=== PATIENT | male | born 2000 | race African-American/Black ===

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

== ENCOUNTER 2023-04-11 09:14 | Inpatient (IN) ==
[2023-04-11 09:26] VITALS: BMI 22.1
[2023-04-11] MEDS ORDERED: ZOFRAN 4 MG/2 ML IVP ONE (09:34)
[2023-04-11] MEDS ORDERED: SODIUM CHLORIDE 1,000 ML IV STA ×3 (09:35→09:47)
[2023-04-11] MEDS ORDERED: ACETAMINOPHEN 1,000 MG/100 ML BAG IV ONE (09:37)
--- NOTE | 2023-04-11 09:40 | ED.PDOC ---
General ED Provider: Dr. FRANCES GILLIS DO Chief Complaint: Dizziness Stated Complaint: Weakness, discomfort, vomiting and loose stools Patient arrives afebrile with high heart rate 127 and low blood pressure 85/45 Patient reports feeling ill for only today He plays college basketball and exercises vigorously He denies falls or injuires No recent antibiotic rx's or surgeries No sick contacts He has had nausea, vomiting and loose stools Benign PSH, PMH: well controlled asthma Patient blood pressure improving with fluids Time Seen by Provider: 04/11/23 09:20 Information Source: Patient Primary Care Provider: TERI WANG APRN Nursing and Triage Documentation Reviewed and Agree: Yes Does patient meet sepsis criteria?: No System Inflammatory Response Syndrome: Not Applicable Sepsis Protocol: For patient's 13 years and over: Temp is 96.8 and below OR 101 and greater Pulse >90 BPM Resp >20/minute Acutely Altered Mental Status Are patient's symptoms suggestive of a new infection, such as: -Pneumonia -Skin, Soft Tissue -Endocarditis -UTI -Bone, Joint Infection -Implantable Device -Acute Abdominal Infection -Wound Infection -Meningitis -Blood Stream Catheter Infection -Unknown Review of Systems Review Of Systems Constitutional: Reports Chills, Fever, Malaise and Weakness; Denies Sweats or Loss of appetite Eyes: Denies Blindness, Blurred vision or Vision change Ears, Nose, Mouth, Throat: Denies Ear pain, Ear discharge or Nose pain Respiratory: Denies Cough, Orthopnea, Short of air, Stridor or Wheezing Cardiac: Denies Chest pain, Edema, Irregular heart rate or Lightheadedness GI: Reports Diarrhea; Denies Abdomen distended or Abdominal pain : Reports Frequency and Urgency; Denies Burning, Dysuria or Discharge Musculoskeletal: Denies Back pain, Gout, Joint pain or Joint swelling Skin: Denies Bruising, Change in color or Change in hair/nails Neurological: Denies Anxiety or Depressed Endocrine: Denies Excessive sweating or Flushing Hematologic/Lymphatic: Reports No symptoms All Other Systems: Reviewed and Negative PFSH Family History Grandfather/Grandmother Diabetes Hyperthyroidism Hypertension Social History Smoking and tobacco status: Never smoker Passive smoking exposure: No Second hand smoke exposure: No Alcohol intake: never Counseling given: No Substance use type: does not use Aishwarya/yazidism: NONE Number of children: 0 Highest education level completed: some college, no degree Current occupational status: unemployed Current occupation: College student Pets and animals: No Leisure activites: sports History of recent travel: No Sexually active: No Seatbelt use: always Drives intoxicated or rides with intoxicated maintenance truck driver: No Water heater temperature set < 120 degrees: Yes Working smoke detector in home: Yes Fire extinguisher in home: Yes Carbon monoxide detector in home: Yes Surgical History Status post myringotomy with insertion of tube Z96.22 - Myringotomy tube(s) status (ICD-10) Status post tonsillectomy Z90.89 - Acquired absence of other organs (ICD-10) Status post tonsillectomy and adenoidectomy Z90.89 - Acquired absence of other organs (ICD-10) Physical Exam Physical Exam Appearance: Reports Ill-appearing and Thin Ill-appearing: Severe Pain Distress: Not Applicable Eyes: Reports KELSI and EOMI ENT: Reports Ears normal and Nose normal Neck: Supple Respiratory: Reports Airway patent and Breath sounds clear; Denies Respirations nonlabored, Airway obstructed or Wheezes Cardiovascular: Reports Tachycardia GI/: Reports Soft, Nontender and Other (negative levine sign no m[place] point ttp) Musculoskeletal: Reports Normal strength and ROM intact Skin: Reports Warm and Dry Neurological: Reports Sensation intact and Motor intact Psychiatric: Reports Affect appropriate and Mood appropriate Critical Care Note Critical Care Note Total Critical Care Time (mins): 0 Course Course 04/11/23 09:43 04/11/23 09:43 Orders, Labs, Meds: Lab Review 04/11/23 04/11/23 04/11/23 09:40 09:43 09:55 WBC 30.97 H RBC 5.08 Hgb 15.1 Hct 43.9 MCV 86.4 MCH 29.7 MCHC 34.4 RDW Coeff of Celeste 12.8 Plt Count 230 Immature Gran % (Auto) 1.8 Neut % (Auto) 94.5 H Lymph % (Auto) 0.5 L [place] % (Auto) 2.7 Eos % (Auto) 0.1 Baso % (Auto) 0.4 Neut # (Auto) 29.3 H Lymph # (Auto) 0.2 L [place] # (Auto) 0.9 Eos # (Auto) 0.0 Baso # (Auto) 0.1 Immature Gran # (Auto) 0.6 Sodium 136.4 Potassium 3.84 Chloride 104.3 Carbon Dioxide 18.6 L Anion Gap 17.34 BUN 25.9 H Creatinine 2.36 H Estimated GFR (MDRD) 42.00 BUN/Creatinine Ratio 10.97 Glucose 90.0 Lactic Acid 4.83 H Calcium 8.78 Total Bilirubin 2.17 H AST 40.2 ALT 36.0 Alkaline Phosphatase 67.6 Total Creatine Kinase 203.9 H CK-MB (CK-2) 0.482 CK-MB (CK-2) % 0.2300 Total Protein 7.41 Albumin 4.35 Globulin 3.06 Albumin/Globulin Ratio 1.42 Lipase 74.7 Procalcitonin 135.55 H Urine Color Urine Clarity Urine pH Ur Specific [place] Urine Protein Urine Glucose (UA) Urine Ketones Urine Blood Urine Nitrite Urine Bilirubin Urine Urobilinogen Ur Leukocyte Esterase Urine Microscopic RBC Urine Microscopic WBC Ur Squamous Epith Cells Urine Bacteria Hyaline Casts Urine Mucus Infectious [place] Assay Negative Influ A Molecular Assay Negative by naat Influ B Molecular Assay Negative by naat RSV Antigen Negative by naat SARS CoV-2 RNA Rapid JEN Negative 04/11/23 04/11/23 10:15 12:12 WBC RBC Hgb Hct MCV MCH MCHC RDW Coeff of [place] Plt Count Immature Gran % (Auto) Neut % (Auto) Lymph % (Auto) [place] % (Auto) Eos % (Auto) Baso % (Auto) Neut # (Auto) Lymph # (Auto) [place] # (Auto) Eos # (Auto) Baso # (Auto) Immature Gran # (Auto) Sodium Potassium Chloride Carbon Dioxide Anion Gap BUN Creatinine Estimated GFR (MDRD) BUN/Creatinine Ratio Glucose Lactic Acid 5.15 H Calcium Total Bilirubin AST ALT Alkaline Phosphatase Total Creatine Kinase CK-MB (CK-2) CK-MB (CK-2) % Total Protein Albumin Globulin Albumin/Globulin Ratio Lipase Procalcitonin Urine Color Dark Urine Clarity Cloudy Urine pH 5.0 Ur Specific [place] >=1.030 Urine Protein 2+ H Urine Glucose (UA) Negative Urine Ketones Negative Urine Blood 3+ H Urine Nitrite Positive H Urine Bilirubin 1+ H Urine Urobilinogen 0.2 Ur Leukocyte Esterase 3+ H Urine Microscopic RBC 20-30 Urine Microscopic WBC 30-50 Ur Squamous Epith Cells 10-20 Urine Bacteria 2+ Hyaline Casts 2-5 Urine Mucus 1+ Infectious [place] Assay Influ A Molecular Assay Influ B Molecular Assay RSV Antigen SARS CoV-2 RNA Rapid JEN Orders Category Date Time Status ADMIT PATIENT INPATIENT .TO [facility] (MONITORED BED) ADMISSION 04/11/23 12:05 Active NPO REMINDER: IMAGING ONCE CARE 04/11/23 09:45 Completed NPO REMINDER: IMAGING ONCE CARE 04/11/23 10:46 Completed TELEMETRY MONITORING TELE CARE 04/11/23 12:05 Active ED IV/MEDIPORT/POWERPORT .ONCE EMERGENCY 04/11/23 09:33 Active BLOOD CULTURE Stat LAB 04/11/23 09:57 Received CBC W/ AUTO DIFF Stat LAB 04/11/23 09:43 Completed CHLAMYDIA/GC AMPLIFICATION Stat LAB 04/11/23 10:56 Ordered COMPREHENSIVE METABOLIC PANEL Stat LAB 04/11/23 09:43 Completed CPK [CREATINE KINASE] Stat LAB 04/11/23 09:43 Completed FLU A & B MOLECULAR [FLU A/B MOLECULAR] Stat LAB 04/11/23 09:40 Completed LACTIC ACID Stat LAB 04/11/23 09:43 Completed LACTIC ACID Stat LAB 04/11/23 12:12 Completed LIPASE Stat LAB 04/11/23 09:43 Completed MOLECULAR GROUP A STREP Stat LAB 04/11/23 09:46 Completed MONONUCLOSIS SCREEN Stat LAB 04/11/23 09:43 Completed RSV Stat LAB 04/11/23 09:40 Completed SARS COV-2 RNA RAPID JEN Stat LAB 04/11/23 09:55 Completed URINALYSIS C & S IF INDICATED Stat LAB 04/11/23 10:15 Completed URINE CULTURE Stat LAB 04/11/23 10:15 Received 0.9 % Sodium Chloride [Saline Flush] MEDS 04/11/23 09:33 Active 1 syr IVF PRN PRN Acetaminophen MEDS 04/11/23 09:37 Discontinued 1,000 mg in 100 ml IV ONCE Ceftriaxone/D5w 2 gm Premix [Rocephin 2 gm/50 ml D5w] MEDS 04/11/23 10:30 Discontinued 2 gm in 50 ml IV ONCE Ondansetron HCl/Pf [Zofran 4 mg/2 ml] MEDS 04/11/23 09:34 Discontinued 4 mg IVP ONCE ONE Sodium Chloride 0.9% [Sodium Chloride] 1,000 ml MEDS 04/11/23 09:35 Discontinued IV BOLUS Sodium Chloride 0.9% [Sodium Chloride] 1,000 ml MEDS 04/11/23 09:43 Discontinued IV BOLUS Sodium Chloride 0.9% [Sodium Chloride] 1,000 ml MEDS 04/11/23 09:[address] ABDOMEN/PELVIS W CONTRAST Stat RADS 04/11/23 09:[address] CHEST PE PROTOCOL Stat RADS 04/11/23 10:46 Completed Medications Generic Name Dose Route Start Last Admin Trade Name Freq PRN Reason Stop Dose Admin Acetaminophen 650 mg 04/11/23 13:02 Acetaminophen 325 Mg Tablet PO Q4H PRN Mild Pain CEFTRIAXONE/D5W 1 GM PREMIX 1 gm in 50 mls @ 75 mls/hr 04/12/23 09:00 Rocephin 1 Gm/50 Ml D5w IV 04/15/23 08:59 DAILY BAUDILIO Lactated Ringer's 1,000 mls @ 125 mls/hr 04/11/23 13:30 Lactated Ringers IV .Q8H BAUDILIO Ondansetron HCl 4 mg 04/11/23 13:02 Ondansetron Hcl/Pf 4 Mg/2 Ml Sdv IVP Q6H PRN Nausea / Vomiting Sodium Chloride 1 syr 04/11/23 09:33 0.9% Sodium Chloride 10 Ml Disp.Syrin IVF PRN PRN To flush IV Discontinued Medications Generic Name Dose Route Start Last Admin Trade Name Freq PRN Reason Stop Dose Admin Sodium Chloride 1,000 mls @ 1,000 mls/hr 04/11/23 09:35 04/11/23 10:10 Sodium Chloride IV 04/11/23 10:34 1,000 mls/hr BOLUS STA Administration Acetaminophen 1,000 mg in 100 mls @ 400 mls/hr 04/11/23 09:37 04/11/23 10:05 Acetaminophen IV 04/11/23 09:51 400 mls/hr ONCE ONE Administration Sodium Chloride 1,000 mls @ 700 mls/hr 04/11/23 09:43 04/11/23 13:52 Sodium Chloride IV 04/11/23 11:08 700 mls/hr BOLUS STA Administration Sodium Chloride 1,000 mls @ 2,000 mls/hr 04/11/23 09:47 04/11/23 12:47 Sodium Chloride IV 04/11/23 10:04 2,000 mls/hr BOLUS STA Administration CEFTRIAXONE/D5W 2 GM PREMIX 2 gm in 50 mls @ 75 mls/hr 04/11/23 10:30 04/11/23 11:03 Rocephin 2 Gm/50 Ml D5w IV 04/11/23 11:09 75 mls/hr ONCE ONE Administration Ondansetron HCl 4 mg 04/11/23 09:34 04/11/23 10:11 Ondansetron Hcl/Pf 4 Mg/2 Ml Sdv IVP 04/11/23 09:35 4 mg ONCE ONE Administration Vital Signs: Temp Pulse Resp BP Pulse Ox 04/11/23 09:15 100.1 F 127 H 16 85/45 L 97 MDM: Patient is a 22 yo M here for nausea, vomiting weakness Patient arrived meeting sepsis criteria with fever, tachycardia low blood pressure 3+ labs and 2 images reviewed by me Patient likely UTI/sepsis shock improved with fluids, vasopressors not required Consults to hospitalist team Patient and I discussed how it is less likely for someone young and male to have UTI/sepsis, but no high risk sexual behavior per patient We plan for fluids, abx and admission Patient and his mother and I discussed results and plan and agree with regimen WDX: UTI, sepsis,shock, fever nausea and vomiting acute condition high compleixty DDX: I considered pneumonia, cellulitis, meningitis, but these were less likely SDOH: Patient insured with PCP and family support Patient admitted stable. Discharge Plan Discharge Patient Disposition: ADMITTED INPATIENT Discharge Problem: SAVANNA (acute kidney injury), Fever, Septic shock, Acute UTI, Nausea & vomiting Did you review [place] [employer] for ALL controlled substances?: Not Applicable ED Provider: FRANCES GILLIS Condition: Good Physician Progress Note: []
[2023-04-11] MEDS ORDERED: ROCEPHIN 2 GM VIAL 2 GM in SODIUM CHLORIDE 100ML 100 ML IV ONE (09:43)
[2023-04-11 09:58] LABS: MONONUCLEOSIS SCREEN NEGATIVE (NEGATIVE)
[2023-04-11 10:03] LABS: ALBUMIN 4.35 g/dL (3.5-5.0); ALKALINE PHOSPHATASE 67.6 U/L (38-126); ASPARTATE AMINO TRANSFERASE 40.2 U/L (17-59); BILIRUBIN,TOTAL 2.17 mg/dL (0.2-1.3); BLOOD UREA NITROGEN 25.9 mg/dL (9-20); CALCIUM 8.78 mg/dL (8.4-10.2); CARBON DIOXIDE 18.6 mmol/L (22-30.0); CHLORIDE 104.3 mmol/L (98-107); CREATININE 2.36 mg/dL (0.60-1.10); LIPASE 74.7 U/L (23-300); POTASSIUM 3.84 mmol/L (3.5-5.1); SODIUM 136.4 mmol/L (134.5-145); TOTAL PROTEIN 7.41 g/dL (6.3-8.2)
[2023-04-11 10:06] LABS: MOLECULAR FLU A NEGATIVE BY NAAT (NEGATIVE); MOLECULAR FLU B NEGATIVE BY NAAT (NEGATIVE)
[2023-04-11 10:09] LABS: BASOPHILS # (AUTO) 0.1 K/uL (0-0.2); BASOPHILS % (AUTO) 0.4 % (0.0-3.0); EOSINOPHILS % (AUTO) 0.1 % (0.0-7.0); HEMATOCRIT 43.9 % (42.0-52.0); HEMOGLOBIN 15.1 g/dl (14.0-18.0); IMMATURE GRANULOCYTE # (AUTO) 0.6 (0.0-1.0); IMMATURE GRANULOCYTE % (AUTO) 1.8 % (0.0-5.0); LYMPHOCYTES # (AUTO) 0.2 K/uL (0.60-3.4); LYMPHOCYTES % (AUTO) 0.5 (10.0-50.0); MEAN CORPUSCULAR HEMOGLOBIN 29.7 pg (27.0-31.0); MEAN CORPUSCULAR HGB CONC 34.4 (31.8-35.4); MEAN CORPUSCULAR VOLUME 86.4 fl (80.0-94.0); MONOCYTES # (AUTO) 0.9 K/uL (0.4-2.0); MONOCYTES % (AUTO) 2.7 (0-10); NEUTROPHILS # (AUTO) 29.3 K/ul (2.0-6.9); NEUTROPHILS % (AUTO) 94.5 % (42.2-75.2); PLATELET COUNT 230 10^3/uL (140-440); RDW COEFFICIENT OF VARIATION 12.8 % (11.6-14.8); RED BLOOD COUNT 5.08 10^6/ul (4.70-6.10)
[2023-04-11 10:09] LABS: RSV MOLECULAR NEGATIVE BY NAAT (NEGATIVE)
[2023-04-11 10:11] LABS: WHITE BLOOD COUNT 30.97 K/ul (4.2-10.2)
[2023-04-11 10:20] LABS: SARS COV-2 RNA RAPID NAAT NEGATIVE (NEGATIVE)
[2023-04-11 10:23] LABS: BILIRUBIN,URINE 1+ (NEGATIVE); CLARITY,URINE Cloudy (CLEAR); COLOR,URINE Dark (YELLOW); GLUCOSE, URINE (UA) Negative (NEGATIVE); KETONES,URINE Negative (NEGATIVE); LEUKOCYTE ESTERASE ,URINE 3+ (NEGATIVE); NITRITE,URINE Positive (NEGATIVE); PROTEIN,URINE 2+ (NEGATIVE); URINE, BLOOD 3+ (NEGATIVE); UROBILINOGEN,URINE 0.2 (0.2)
[2023-04-11] MEDS ORDERED: ROCEPHIN 2 GM/50 ML D5W 2 GM/50 ML BAG IV ONE (10:30)
[2023-04-11 10:36] LABS: URINE RBC, MICROSCOPIC 20-30 (0-2)
[2023-04-11 10:37] LABS: BACTERIA,URINE 2+ (NOT PRESENT)
[2023-04-11 10:45] LABS: MUCUS,URINE 1+ (NOT PRESENT); URINE WBC, MICROSCOPIC 30-50 (0-2)
[2023-04-11 11:02] LABS: CREATINE KINASE 203.9 U/L (55-170)
[2023-04-11 11:23] LABS: CREATINE KINASE MB 0.482 ng/ml (0.0-2.38)
--- NOTE | 2023-04-11 11:29 | CT ---
EXAM: CTA CHEST FOR PE HISTORY: Sepsis and cough COMPARISON: Same day CT abdomen pelvis TECHNIQUE: CTA of the chest was performed from the lung apices to the upper abdomen after 100 ml of Visipaque IV contrast was administered using PE protocol. 3-D imaging was also provided. FINDINGS: There is no filling defect in the pulmonary arteries to the level of the subsegmental pulm onary arteries. The heart is normal without signs of ventricular strain. The thyroid is normal. Th e aorta is unremarkable. Heart is not enlarged without pericardial fluid. There is no lymphadenopat hy. There is no pneumothorax or effusion. There is no consolidation, nodule or mass. There is no abnorm al ground-glass. The airways are patent. Limited views of the soft tissues in the upper abdomen are unremarkable. The osseous structures are unremarkable. IMPRESSION: No acute cardiopulmonary process or consolidation. All CT scans are performed using dose optimization techniques as appropriate to the performed exam an d include at least one of the following: Automated exposure control, adjustment of the mA and/or kV according t o size, and the use of iterative reconstruction technique.
--- NOTE | 2023-04-11 11:44 | CT ---
CT ABDOMEN AND PELVIS WITH CONTRAST HISTORY: Nausea, vomiting, tachycardia, low blood pressure. TECHNIQUE: Contiguous axial tomographic sections were obtained from the dome of the diaphragm throug h the ischial tuberosities following the administration of iodinated intravenous contrast. Coronal a nd sagittal reformats were then performed. Automatic exposure control was utilized for dose reductio n technique. COMPARISON: None. FINDINGS: LOWER CHEST: Normal. Limited evaluation. LIVER: Normal size and attenuation without focal hepatic lesion. GALLBLADDER: No evidence of cholelithiasis, gallbladder wall thickening, or pericholecystic fluid. BILIARY: No intrahepatic or extrahepatic biliary ductal dilatation. PANCREAS: Normal contour and attenuation without focal lesion. Normal caliber main pancreatic duct. SPLEEN: Normal size and contour. ADRENALS: Normal size and shape without nodularity. KIDNEYS: The kidneys are unremarkable. PERITONEUM/MESENTERY: No free fluid, free air or mesenteric inflammatory change. No loculated fluid c ollection. VASCULATURE: Nonaneurysmal aorta. LYMPH NODES: No pathologically enlarged lymph nodes by CT size criteria. BOWEL: No bowel obstruction. The appendix is identified and has a normal diameter. Variable decompres josé miguel of the colon limits evaluation, no colitis or acute diverticulitis detected. URINARY BLADDER: Decompressed and poorly evaluated. REPRODUCTIVE: Unremarkable prostate and seminal vesicles. MUSCULOSKELETAL: The bones are normal. IMPRESSION: 1. No acute findings. 2. Negative for bowel obstruction, perforation, or appendicitis. All CT scans are performed using dose optimization techniques as appropriate to the performed exam an d include at least one of the following: Automated exposure control, adjustment of the mA and/or kV according t o size, and the use of iterative reconstruction technique.
[2023-04-11] MEDS ORDERED: ZOFRAN 4 MG/2 ML IVP PRN (13:02)
--- NOTE | 2023-04-11 14:23 | PCM ---
Date of Service Date Seen by Provider: 04/11/23 Time Seen by Provider: 12:15 Admit Day/Time Admission Date: 04/11/23 Admission Time: 12:05 Reason for Admission Chief Complaint: WEAKNESS Hospital Provider [facility] Provider: HERBERT BALTAZAR MD, [facility] Primary Care Physician Primary Care Physician: TERI WANG APRN History of Present Illness History of Present Illness: Patient is a 22 year old male with his mother with pmhx of dilatation of aortic valve who presents to ER for n/v, abd pain, and dizziness. Patient states he started feeling bad yesterday with a headache. Last night he experienced burning while urinating. Then today the abd pain and vomiting started. He denies any recent illnesses. Denies any risky sexual behavior, always uses protection. No rashes or testicular pain. No fever. In the ER he was found to be hypotensive, low grade fever, tachycardic, WBC 30.9, LA >4, Cr 2.36. He states he hasn't drank as much in last few days as well. Flu, rsv, and covid negative. CT chest, abd, pelvis negative for acute findings. UA significant for 3+ leukocytes and positive nitrites. He was given rocephin and fluids. Regarding dilatation of aortic valve, he was found to have a murmur years ago and he was worked up at [facility]. He had a borderline dilated aortic valve annulus. He is due to be seen by them again soon. Case Discussed With Case Discussed With: Patient's case was discussed with the ER Physicians, Dr. Baltazar. [facility] Surgical History Status post myringotomy with insertion of tube Z96.22 - Myringotomy tube(s) status (ICD-10) Status post tonsillectomy Z90.89 - Acquired absence of other organs (ICD-10) Status post tonsillectomy and adenoidectomy Z90.89 - Acquired absence of other organs (ICD-10) Family History Grandfather/Grandmother Diabetes Hyperthyroidism Hypertension Social History Smoking and tobacco status: Never smoker Passive smoking exposure: No Second hand smoke exposure: No Alcohol intake: never Counseling given: No Substance use type: does not use Aishwarya/caodaism: NONE Number of children: 0 Highest education level completed: some college, no degree Current occupational status: unemployed Current occupation: College student Pets and animals: No Leisure activites: sports History of recent travel: No Sexually active: No Seatbelt use: always Drives intoxicated or rides with intoxicated dedicated truck driver: No Water heater temperature set < 120 degrees: Yes Working smoke detector in home: Yes Fire extinguisher in home: Yes Carbon monoxide detector in home: Yes Allergies Allergies Allergy/AdvReac Type Severity Reaction Status Date / Time No Known Allergies Allergy Unverified 04/11/23 09:56 Current Medications Home Medications albuterol sulfate 90 mcg/actuation aerosol inhaler (ProAir HFA) 90 mcg inhalation 3-4XD PRN shortness of breath or wheezing #8.5 grams 10/24/22 [Rx Confirmed 04/11/23 Last Taken Unknown] Home Acetaminophen (Acetaminophen 325 Mg Tablet) 650 mg PO Q4H PRN PRN Reason: Mild Pain CEFTRIAXONE/D5W 1 GM PREMIX (Rocephin 1 Gm/50 Ml D5w) 1 gm in 50 mls @ 75 mls/hr IV DAILY BAUDILIO Stop: 04/15/23 08:59 Lactated Ringer's (Lactated Ringers) 1,000 mls @ 125 mls/hr IV .Q8H BAUDILIO Last Admin: 04/11/23 17:48 Dose: 125 mls/hr Ondansetron HCl (Ondansetron Hcl/Pf 4 Mg/2 Ml Sdv) 4 mg IVP Q6H PRN PRN Reason: Nausea / Vomiting Sodium Chloride (0.9% Sodium Chloride 10 Ml Disp.Syrin) 1 syr IVF PRN PRN PRN Reason: To flush IV Discontinued Medications Sodium Chloride (Sodium Chloride) 1,000 mls @ 1,000 mls/hr IV BOLUS STA Stop: 04/11/23 10:34 Last Admin: 04/11/23 10:10 Dose: 1,000 mls/hr Acetaminophen (Acetaminophen) 1,000 mg in 100 mls @ 400 mls/hr IV ONCE ONE Stop: 04/11/23 09:51 Last Admin: 04/11/23 10:05 Dose: 400 mls/hr Sodium Chloride (Sodium Chloride) 1,000 mls @ 700 mls/hr IV BOLUS STA Stop: 04/11/23 11:08 Last Admin: 04/11/23 13:52 Dose: 700 mls/hr Sodium Chloride (Sodium Chloride) 1,000 mls @ 2,000 mls/hr IV BOLUS STA Stop: 04/11/23 10:04 Last Admin: 04/11/23 12:47 Dose: 2,000 mls/hr CEFTRIAXONE/D5W 2 GM PREMIX (Rocephin 2 Gm/50 Ml D5w) 2 gm in 50 mls @ 75 mls/hr IV ONCE ONE Stop: 04/11/23 11:09 Last Admin: 04/11/23 11:03 Dose: 75 mls/hr Ondansetron HCl (Ondansetron Hcl/Pf 4 Mg/2 Ml Sdv) 4 mg IVP ONCE ONE Stop: 04/11/23 09:35 Last Admin: 04/11/23 10:11 Dose: 4 mg Review of Systems Constitutional: Reports Fatigue; Denies Fever, Chills or Weakness Head: Reports Normocephalic and Atraumatic Eyes: Denies Vision Changes Ears: Denies Pain or Drainage Nose: Denies Post Nasal Drip or Congestion Mouth: Denies Sores or Pain Throat: Denies Sore Throat or Difficulty Swallowing Cardiovascular: Denies Chest pain, Chest Pressure or Edema Respiratory: Denies Cough or Shortness of air Gastrointestinal: Reports Nausea, Vomiting, Diarrhea and Abdominal pain Genitourinary: Reports Dysuria; Denies Frequency, Incontinent Bladder or Incontinent Bowel Musculoskeletal: Denies Muscle Pain Dermatologic: Denies Rashes Neurological: Reports Headache and Dizziness; Denies Syncope, Loss of Conciousness, Numbness or Weakness Psychiatric: Denies Depression or Anxiety Physical examination Most Recent Vital Signs: Most Recent Vital Signs Temperature 100.1 F 04/11/23 09:15 Temperature Source Infrared 04/11/23 09:15 Pulse Rate 127 H 04/11/23 09:15 Respiratory Rate 16 04/11/23 09:15 Blood Pressure 85/45 L 04/11/23 09:15 O2 Sat by Pulse Oximetry 97 04/11/23 09:15 Height 6 ft 7 in 04/11/23 09:15 Weight 196 lb 6 oz 05/19/23 09:15 Appearance: Positive Well-appearing, Well-nourished, No Apparent Distress, Alert and Oriented x3 and Other (Healthy, tall male sitting in bed looking at his phone. Mother at bedside. ) Skin: Positive Lazy Y U, Warm and Good Color; Negative Rashes or Jaundice HEENT: Positive Normocephalic and Atraumatic Neck: Positive Supple and Midline Trachea Chest/Lungs: Positive Symmetrical With Equal Breath Sounds and Clear to Auscultation Bilaterally; Negative Rales, Rhonci or Wheezes Heart: Positive RRR GI/: Positive Soft, Nontender, Bowel Sounds Normal, No Distention and Other (No suprapubic tendernses ) Musculoskeletal: Positive Normal Gait and Station; Negative Tenderness Extremities: Positive Intact Peripheral Pulses; Negative Edema or Joint Tenderness Neurological: Positive Motor intact, Cranial Nerves Intact, Alert, Oriented and Muscle Strength 5/5 in Upper and Lower Extremities Bilaterally Psychiatric: Positive Oriented x4, Appropriate Mood and Appropriate Affect Labs This Visit Labs This Visit: Labs This Visit 04/11/23 04/11/23 04/11/23 09:40 09:43 09:55 WBC 30.97 H RBC 5.08 Hgb 15.1 Hct 43.9 MCV 86.4 MCH 29.7 MCHC 34.4 RDW Coeff of Celeste 12.8 Plt Count 230 Immature Gran % (Auto) 1.8 Neut % (Auto) 94.5 H Lymph % (Auto) 0.5 L [place] % (Auto) 2.7 Eos % (Auto) 0.1 Baso % (Auto) 0.4 Neut # (Auto) 29.3 H Lymph # (Auto) 0.2 L [place] # (Auto) 0.9 Eos # (Auto) 0.0 Baso # (Auto) 0.1 Immature Gran # (Auto) 0.6 Sodium 136.4 Potassium 3.84 Chloride 104.3 Carbon Dioxide 18.6 L Anion Gap 17.34 BUN 25.9 H Creatinine 2.36 H Estimated GFR (MDRD) 42.00 BUN/Creatinine Ratio 10.97 Glucose 90.0 Lactic Acid 4.83 H Calcium 8.78 Total Bilirubin 2.17 H AST 40.2 ALT 36.0 Alkaline Phosphatase 67.6 Total Creatine Kinase 203.9 H CK-MB (CK-2) 0.482 CK-MB (CK-2) % 0.2300 Total Protein 7.41 Albumin 4.35 Globulin 3.06 Albumin/Globulin Ratio 1.42 Lipase 74.7 Procalcitonin 135.55 H Urine Color Urine Clarity Urine pH Ur Specific [place] Urine Protein Urine Glucose (UA) Urine Ketones Urine Blood Urine Nitrite Urine Bilirubin Urine Urobilinogen Ur Leukocyte Esterase Urine Microscopic RBC Urine Microscopic WBC Ur Squamous Epith Cells Urine Bacteria Hyaline Casts Urine Mucus Infectious [place] Assay Negative Influ A Molecular Assay Negative by naat Influ B Molecular Assay Negative by naat RSV Antigen Negative by naat SARS CoV-2 RNA Rapid JEN Negative 04/11/23 04/11/23 10:15 12:12 WBC RBC Hgb Hct MCV MCH MCHC RDW Coeff of [place] Plt Count Immature Gran % (Auto) Neut % (Auto) Lymph % (Auto) [place] % (Auto) Eos % (Auto) Baso % (Auto) Neut # (Auto) Lymph # (Auto) [place] # (Auto) Eos # (Auto) Baso # (Auto) Immature Gran # (Auto) Sodium Potassium Chloride Carbon Dioxide Anion Gap BUN Creatinine Estimated GFR (MDRD) BUN/Creatinine Ratio Glucose Lactic Acid 5.15 H Calcium Total Bilirubin AST ALT Alkaline Phosphatase Total Creatine Kinase CK-MB (CK-2) CK-MB (CK-2) % Total Protein Albumin Globulin Albumin/Globulin Ratio Lipase Procalcitonin Urine Color Dark Urine Clarity Cloudy Urine pH 5.0 Ur Specific [place] >=1.030 Urine Protein 2+ H Urine Glucose (UA) Negative Urine Ketones Negative Urine Blood 3+ H Urine Nitrite Positive H Urine Bilirubin 1+ H Urine Urobilinogen 0.2 Ur Leukocyte Esterase 3+ H Urine Microscopic RBC 20-30 Urine Microscopic WBC 30-50 Ur Squamous Epith Cells 10-20 Urine Bacteria 2+ Hyaline Casts 2-5 Urine Mucus 1+ Infectious [place] Assay Influ A Molecular Assay Influ B Molecular Assay RSV Antigen SARS CoV-2 RNA Rapid JEN Microbiology This Visit 04/11/23 09:46 Throat Group A Strep Molecular Assay - Final Imaging Imagining: EXAM: CTA CHEST FOR PE HISTORY: Sepsis and cough COMPARISON: Same day CT abdomen pelvis TECHNIQUE: CTA of the chest was performed from the lung apices to the upper abdomen after 100 ml of Visipaque IV contrast was administered using PE protocol. 3-D imaging was also provided. FINDINGS: There is no filling defect in the pulmonary arteries to the level of the subsegmental pulmonary arteries. The heart is normal without signs of ventricular strain. The thyroid is normal. The aorta is unremarkable. Heart is not enlarged without pericardial fluid. There is no lymphadenopathy. There is no pneumothorax or effusion. There is no consolidation, nodule or mass. There is no abnormal ground-glass. The airways are patent. Limited views of the soft tissues in the upper abdomen are unremarkable. The osseous structures are unremarkable. IMPRESSION: No acute cardiopulmonary process or consolidation. CT ABDOMEN AND PELVIS WITH CONTRAST HISTORY: Nausea, vomiting, tachycardia, low blood pressure. TECHNIQUE: Contiguous axial tomographic sections were obtained from the dome of the diaphragm through the ischial tuberosities following the administration of iodinated intravenous contrast. Coronal and sagittal reformats were then performed. Automatic exposure control was utilized for dose reduction technique. COMPARISON: None. FINDINGS: LOWER CHEST: Normal. Limited evaluation. LIVER: Normal size and attenuation without focal hepatic lesion. GALLBLADDER: No evidence of cholelithiasis, gallbladder wall thickening, or pericholecystic fluid. BILIARY: No intrahepatic or extrahepatic biliary ductal dilatation. PANCREAS: Normal contour and attenuation without focal lesion. Normal caliber main pancreatic duct. SPLEEN: Normal size and contour. ADRENALS: Normal size and shape without nodularity. KIDNEYS: The kidneys are unremarkable. PERITONEUM/MESENTERY: No free fluid, free air or mesenteric inflammatory change. No loculated fluid collection. VASCULATURE: Nonaneurysmal aorta. LYMPH NODES: No pathologically enlarged lymph nodes by CT size criteria. BOWEL: No bowel obstruction. The appendix is identified and has a normal diameter. Variable decompression of the colon limits evaluation, no colitis or acute diverticulitis detected. URINARY BLADDER: Decompressed and poorly evaluated. REPRODUCTIVE: Unremarkable prostate and seminal vesicles. MUSCULOSKELETAL: The bones are normal. IMPRESSION: 1. No acute findings. 2. Negative for bowel obstruction, perforation, or appendicitis. Review Statement Review Statement: I have independently reviewed and interpreted the labs/EKGs/imaging that were ordered by the ER provider. I have reviewed all outside records that are available currently in our EMR including imaging/notes/labs from previous visits. Plan Plan: A&P: 1. Acute pyelonephritis - Urine culture pending. LR at 125 ml/hr once boluses finish. Rocephin ordered. Zofran IV for nausea and tylenol PO for pain/fever ordered. Gonorrhea/chlamydia pending. 2. Sepsis, severe in setting of acute pyelonephritis - Repeat lactic worsened to 5. WBC 30.9. Will continue to trend until improving. Continue fluids and abx. Urine cx and blood cx pending. Pt received 30 ml/kg of fluids. Check procal and CRP. 3. SAVANNA, stage I in setting of dehydration, hypotension, and sepsis - Continue fluids. Repeat BMP in AM. 4. Dehydration - Plan as above 5. Hypotension in setting of dehydration and sepsis - Improved after fluids. Continue to monitor, vitals q4hrs. DVT Prophylaxis: Ambulation Time Spent: Greater than 80 minutes spent with patient, 50% of the time spent with this patient was devoted to counseling and coordination of care. [facility] minutes spent discussing advance care planning. FULL CODE Admit to: Inpatient Discussed Plan of Care with Dr. Nato Baltazar. Medications Medication Orders: Medications Ordered Category Date Time Status 0.9 % Sodium Chloride [Saline Flush] MEDS 04/11/23 09:33 Active 1 syr IVF PRN PRN Acetaminophen [Tylenol] MEDS 04/11/23 13:02 Active 650 mg PO Q4H PRN Ceftriaxone/D5w 1 gm Premix [Rocephin 1 gm/50 ml D5w] MEDS 04/12/23 09:00 Active 1 gm in 50 ml IV DAILY Ondansetron HCl/Pf [Zofran 4 mg/2 ml] MEDS 04/11/23 13:02 Active 4 mg IVP Q6H PRN Ringers Lactated Solution [Lactated Ringers] 1,000 ml MEDS 04/11/23 13:30 Active IV 125 mls/hr
[2023-04-11] MEDS: LACTATED RINGERS 1,000 ML IV SCH (17:48)
[2023-04-11] MEDS: TYLENOL PO PRN (21:13)
[2023-04-12] MEDS: LACTATED RINGERS 1,000 ML IV SCH ×6 (01:36→21:34)
[2023-04-12] MEDS: TYLENOL PO PRN ×3 (04:04→20:50)
[2023-04-12 05:35] LABS: BASOPHILS # (AUTO) 0.1 K/uL (0-0.2); BASOPHILS % (AUTO) 0.3 % (0.0-3.0); EOSINOPHILS # (AUTO) 0.1 K/ul (0.0-0.7); EOSINOPHILS % (AUTO) 0.4 % (0.0-7.0); HEMATOCRIT 38.7 % (42.0-52.0); HEMOGLOBIN 13.3 g/dl (14.0-18.0); IMMATURE GRANULOCYTE # (AUTO) 0.9 (0.0-1.0); IMMATURE GRANULOCYTE % (AUTO) 3.3 % (0.0-5.0); LYMPHOCYTES # (AUTO) 0.3 K/uL (0.60-3.4); LYMPHOCYTES % (AUTO) 1.3 (10.0-50.0); MEAN CORPUSCULAR HEMOGLOBIN 29.3 pg (27.0-31.0); MEAN CORPUSCULAR HGB CONC 34.4 (31.8-35.4); MEAN CORPUSCULAR VOLUME 85.2 fl (80.0-94.0); MONOCYTES # (AUTO) 0.6 K/uL (0.4-2.0); MONOCYTES % (AUTO) 2.1 (0-10); NEUTROPHILS # (AUTO) 24.2 K/ul (2.0-6.9); NEUTROPHILS % (AUTO) 92.6 % (42.2-75.2); PLATELET COUNT 165 10^3/uL (140-440); RDW COEFFICIENT OF VARIATION 12.9 % (11.6-14.8); RED BLOOD COUNT 4.54 10^6/ul (4.70-6.10); WHITE BLOOD COUNT 26.14 K/ul (4.2-10.2)
[2023-04-12 05:51] LABS: ALANINE AMINOTRANSFERASE 88.9 U/L (0-50); ALKALINE PHOSPHATASE 78.9 U/L (38-126); ASPARTATE AMINO TRANSFERASE 87.3 U/L (17-59); BILIRUBIN,TOTAL 4.1 mg/dL (0.2-1.3); BLOOD UREA NITROGEN 28.8 mg/dL (9-20); CALCIUM 7.39 mg/dL (8.4-10.2); CARBON DIOXIDE 22.3 mmol/L (22-30.0); CHLORIDE 103.1 mmol/L (98-107); CREATININE 1.86 mg/dL (0.60-1.10); GLUCOSE 90.7 mg/dL (74-106); POTASSIUM 3.71 mmol/L (3.5-5.1); TOTAL PROTEIN 5.69 g/dL (6.3-8.2)
[2023-04-12] MEDS ORDERED: TYLENOL PO ONE (05:58)
[2023-04-12] MEDS ORDERED: LACTATED RINGERS 1,000 ML IV STA (05:58)
[2023-04-12 06:55] LABS: CREATINE KINASE MB 0.938 ng/ml (0.0-2.38)
[2023-04-12] MEDS: ROCEPHIN 1 GM/50 ML D5W 1 GM/50 ML BAG IV SCH (08:39)
--- NOTE | 2023-04-12 10:38 | PCM.PROG ---
Date/Time Seen Date Seen by Provider: 04/12/23 Time Seen by Provider: 08:30 Provider Provider: Shirley Campo PA-C , [facility] Chief Complaint Chief Complaint: WEAKNESS Subjective Subjective: Patient continues to be hypotensive and febrile on and off. He states he has a headache and dizziness when standing. Complains of sore throat, sore neck. He denies n/v abd pain, that is all resolved as of now. He has been urinating well, nursing reports it was tea colored this morning but improving. Eating and drinking well. Mother at bedside. Objective Appearance: Positive Well-appearing, Well-nourished, No Apparent Distress, Alert and Oriented x3 and Other (Posterior pharynx erythematous. ) Chest/Lungs: Positive Symmetrical With Equal Breath Sounds and Clear to Auscultation Bilaterally; Negative Rales, Rhonci or Wheezes Heart: Positive RRR and Pulses Normal GI/: Positive Soft, Nontender and Bowel Sounds Normal Neurological: Positive Cranial Nerves Intact, Alert, Oriented, Muscle Strength 5/5 in Upper and Lower Extremities Bilaterally and Other (Kernig and Brudzinski signs are negative. Pt able to flex neck putting chin to chest without difficulty. ) Vital Signs Vital Signs: Vital Signs: Last 24 Hours 04/11/23 14:00 04/11/23 14:52 04/11/23 14:52 Temperature 98.6 F Temperature Source Oral Pulse Rate 80 92 Pulse Rate [Apical] Respiratory Rate 20 20 20 Blood Pressure 107/58 L Blood Pressure Mean Blood Pressure Right Arm 115/66 Blood Pressure Location Blood Pressure Position Supine O2 Sat by Pulse Oximetry 98 99 Oxygen Delivery Method Room Air Room Air Height 6 ft 7 in Weight 196 lb 9.6 oz Telemetry Type Telemetry Monitoring Telemetry Heart Rate EKG WV Interval EKG QRS Interval Telemetry Strip Reading 04/11/23 15:36 04/11/23 19:00 04/11/23 19:52 Temperature Temperature Source Pulse Rate Pulse Rate [Apical] 106 H Respiratory Rate Blood Pressure Blood Pressure Mean Blood Pressure Right Arm Blood Pressure Location Blood Pressure Position O2 Sat by Pulse Oximetry Oxygen Delivery Method Room Air Height Weight Telemetry Type Remote Telemetry Remote Telemetry Telemetry Monitoring Started Continues Telemetry Heart Rate 95 107 H EKG WV Interval 0.22 H 0.14 EKG QRS Interval 0.11 H 0.09 Telemetry Strip Reading SR 1st Degree AVB ST 04/11/23 21:16 04/12/23 01:42 04/12/23 01:00 Temperature 100.8 F H 99.9 F Temperature Source Temporal Artery Scan Temporal Artery Scan Pulse Rate 104 H 95 Pulse Rate [Apical] Respiratory Rate 18 18 Blood Pressure 113/61 Blood Pressure Mean 78 Blood Pressure Right Arm Blood Pressure Location Right Arm Blood Pressure Position Supine O2 Sat by Pulse Oximetry 96 Oxygen Delivery Method Room Air Room Air Height Weight Telemetry Type Remote Telemetry Telemetry Monitoring Continues Telemetry Heart Rate 104 H EKG WV Interval 0.14 EKG QRS Interval 0.[address] 04/12/23 05:55 04/12/23 06:52 04/12/23 07:00 Temperature 102 F H 100.2 F Temperature Source Oral Temporal Artery Scan Pulse Rate 112 H Pulse Rate [Apical] Respiratory Rate 18 Blood Pressure 81/43 L 78/42 L Blood Pressure Mean 55 54 Blood Pressure Right Arm Blood Pressure Location Right Arm Right Arm Blood Pressure Position Supine Supine O2 Sat by Pulse Oximetry 99 Oxygen Delivery Method Room Air Room Air Height Weight Telemetry Type Remote Telemetry Telemetry Monitoring Continues Telemetry Heart Rate 95 EKG WV Interval 0.20 EKG QRS Interval 0.08 Telemetry Strip Reading SR 04/12/23 08:00 04/12/23 08:00 04/12/23 10:00 Temperature 100.4 F H 98.6 F Temperature Source Oral Temporal Artery Scan Pulse Rate 93 92 Pulse Rate [Apical] Respiratory Rate 18 16 16 Blood Pressure 72/38 L 99/48 L Blood Pressure Mean 49 65 Blood Pressure Right Arm Blood Pressure Location Right Arm Right Arm Blood Pressure Position Supine Supine O2 Sat by Pulse Oximetry 95 100 Oxygen Delivery Method Room Air Room Air Room Air Height Weight Telemetry Type Telemetry Monitoring Telemetry Heart Rate EKG WV Interval EKG QRS Interval Telemetry Strip Reading Lab Results Lab Results: Lab Results: Last 24 Hours 04/12/23 04/12/23 04/11/23 06:10 05:20 15:53 WBC 26.14 H RBC 4.54 L Hgb 13.3 L Hct 38.7 L MCV 85.2 MCH 29.3 MCHC 34.4 RDW Coeff of Celeste 12.9 Plt Count 165 Immature Gran % (Auto) 3.3 Neut % (Auto) 92.6 H Lymph % (Auto) 1.3 L [place] % (Auto) 2.1 Eos % (Auto) 0.4 Baso % (Auto) 0.3 Neut # (Auto) 24.2 H Lymph # (Auto) 0.3 L [place] # (Auto) 0.6 Eos # (Auto) 0.1 Baso # (Auto) 0.1 Immature Gran # (Auto) 0.9 Sodium 130.0 L Potassium 3.71 Chloride 103.1 Carbon Dioxide 22.3 Anion Gap 8.31 BUN 28.8 H Creatinine 1.86 H D Estimated GFR (MDRD) 55.00 BUN/Creatinine Ratio 15.48 Glucose 90.7 Lactic Acid 1.71 5.39 H Calcium 7.39 L Total Bilirubin 4.10 H D AST 87.3 H D ALT 88.9 H D Alkaline Phosphatase 78.9 Total Creatine Kinase 191.0 H CK-MB (CK-2) 0.938 CK-MB (CK-2) % 0.4900 C-Reactive Prot, Quant Total Protein 5.69 L Albumin 3.00 L Globulin 2.69 Albumin/Globulin Ratio 1.11 Procalcitonin 186.33 H Urine Color Urine Clarity Urine pH Ur Specific [place] Urine Protein Urine Glucose (UA) Urine Ketones Urine Blood Urine Nitrite Urine Bilirubin Urine Urobilinogen Ur Leukocyte Esterase Urine Microscopic RBC Urine Microscopic WBC Ur Squamous Epith Cells Urine Bacteria Hyaline Casts Urine Mucus 04/11/23 04/11/23 04/11/23 14:06 12:12 10:15 WBC RBC Hgb Hct MCV MCH MCHC RDW Coeff of Celeste Plt Count Immature Gran % (Auto) Neut % (Auto) Lymph % (Auto) [place] % (Auto) Eos % (Auto) Baso % (Auto) Neut # (Auto) Lymph # (Auto) [place] # (Auto) Eos # (Auto) Baso # (Auto) Immature Gran # (Auto) Sodium Potassium Chloride Carbon Dioxide Anion Gap BUN Creatinine Estimated GFR (MDRD) BUN/Creatinine Ratio Glucose Lactic Acid 5.63 H 5.15 H Calcium Total Bilirubin AST ALT Alkaline Phosphatase Total Creatine Kinase CK-MB (CK-2) CK-MB (CK-2) % C-Reactive Prot, Quant Total Protein Albumin Globulin Albumin/Globulin Ratio Procalcitonin Urine Color Dark Urine Clarity Cloudy Urine pH 5.0 Ur Specific [place] >=1.030 Urine Protein 2+ H Urine Glucose (UA) Negative Urine Ketones Negative Urine Blood 3+ H Urine Nitrite Positive H Urine Bilirubin 1+ H Urine Urobilinogen 0.2 Ur Leukocyte Esterase 3+ H Urine Microscopic RBC 20-30 Urine Microscopic WBC 30-50 Ur Squamous Epith Cells 10-20 Urine Bacteria 2+ Hyaline Casts 2-5 Urine Mucus 1+ 04/11/23 09:43 WBC RBC Hgb Hct MCV MCH MCHC RDW Coeff of Celeste Plt Count Immature Gran % (Auto) Neut % (Auto) Lymph % (Auto) [place] % (Auto) Eos % (Auto) Baso % (Auto) Neut # (Auto) Lymph # (Auto) [place] # (Auto) Eos # (Auto) Baso # (Auto) Immature Gran # (Auto) Sodium Potassium Chloride Carbon Dioxide Anion Gap BUN Creatinine Estimated GFR (MDRD) BUN/Creatinine Ratio Glucose Lactic Acid Calcium Total Bilirubin AST ALT Alkaline Phosphatase Total Creatine Kinase 203.9 H CK-MB (CK-2) 0.482 CK-MB (CK-2) % 0.2300 C-Reactive Prot, Quant 85 H Total Protein Albumin Globulin Albumin/Globulin Ratio Procalcitonin 135.55 H Urine Color Urine Clarity Urine pH Ur Specific [place] Urine Protein Urine Glucose (UA) Urine Ketones Urine Blood Urine Nitrite Urine Bilirubin Urine Urobilinogen Ur Leukocyte Esterase Urine Microscopic RBC Urine Microscopic WBC Ur Squamous Epith Cells Urine Bacteria Hyaline Casts Urine Mucus Additional Comments Additional Comments: I have independently reviewed and interpreted the labs/EKGs/imaging ordered during this hospital stay. I have reviewed outside records that are available in our EMR that pertain to medical stay including imaging/notes/labs from previous visits. Active Medications Active Medications: Medications Generic Name Dose Route Start Last Admin Trade Name Carlton PRN Reason Stop Dose Admin Acetaminophen 650 mg 04/11/23 13:02 04/12/23 04:04 Acetaminophen 325 Mg Tablet PO 650 mg Q4H PRN Administration Mild Pain CEFTRIAXONE/D5W 1 GM PREMIX 1 gm in 50 mls @ 75 mls/hr 04/12/23 09:00 04/12/23 08:39 Rocephin 1 Gm/50 Ml D5w IV 04/15/23 08:59 75 mls/hr DAILY BAUDILIO Administration Lactated Ringer's 1,000 mls @ 250 mls/hr 04/12/23 08:07 04/12/23 10:22 Lactated Ringers IV 250 mls/hr .Q4H BAUDILIO Administration Ondansetron HCl 4 mg 04/11/23 13:02 Ondansetron Hcl/Pf 4 Mg/2 Ml Sdv IVP Q6H PRN Nausea / Vomiting Sodium Chloride 1 syr 04/11/23 09:33 0.9% Sodium Chloride 10 Ml Disp.Syrin IVF PRN PRN To flush IV Plan Plan: A&P: 1. Acute pyelonephritis - Urine culture pending. LR increased to 250 ml/hr. Gave additional LR bolus this morning. Continue Rocephin, will broaden abx tomorrow if procal not improving. Zofran IV for nausea and tylenol PO for pain/fever ordered. Gonorrhea/chlamydia pending. HIV and hep c labs ordered for AM. 2. Septic shock in setting of acute pyelonephritis - Improving. Pt continued to be hypotensive despite fluid resuscitation. Improved now following another liter of fluids. Repeat lactic worsened to 5 yesterday, normalized today. WBC improving. Continue fluids and abx. Urine cx and blood cx pending. Pt received 30 ml/kg of fluids. Procal and crp elevated. Will trend procal. 3. SAVANNA, stage I in setting of dehydration, hypotension, and sepsis - Improved. Continue fluids. Repeat BMP in AM. 4. Dehydration - Plan as above 5. Hypotension in setting of dehydration and sepsis - Improved after fluids. Continue to monitor, vitals q4hrs. 6. Elevated liver enzymes in setting of septic shock - Will monitor closely. If not improving will order US RUQ. DVT prophylaxis: Lovenox Review Statement Review Statement: I have personally discussed and reviewed the patient's visit/currently labs/imaging/decision making with Dr. Baltazar, my supervising attending. Greater that 50 minutes spent with patient, 50% of the time spent with this patient was devoted to counseling and coordination of care.
[2023-04-12] MEDS: LOVENOX SUBCUT SCH (11:25)
[2023-04-13] MEDS: LACTATED RINGERS 1,000 ML IV SCH ×7 (01:12→21:47)
[2023-04-13 05:18] LABS: BASOPHILS % (AUTO) 0.1 % (0.0-3.0); EOSINOPHILS # (AUTO) 0.2 K/ul (0.0-0.7); EOSINOPHILS % (AUTO) 1.3 % (0.0-7.0); HEMATOCRIT 35.8 % (42.0-52.0); HEMOGLOBIN 12.3 g/dl (14.0-18.0); IMMATURE GRANULOCYTE # (AUTO) 0.2 (0.0-1.0); IMMATURE GRANULOCYTE % (AUTO) 1.1 % (0.0-5.0); LYMPHOCYTES # (AUTO) 0.8 K/uL (0.60-3.4); LYMPHOCYTES % (AUTO) 4.8 (10.0-50.0); MEAN CORPUSCULAR HEMOGLOBIN 29.4 pg (27.0-31.0); MEAN CORPUSCULAR HGB CONC 34.4 (31.8-35.4); MEAN CORPUSCULAR VOLUME 85.4 fl (80.0-94.0); MONOCYTES # (AUTO) 0.4 K/uL (0.4-2.0); MONOCYTES % (AUTO) 2.5 (0-10); NEUTROPHILS # (AUTO) 14.4 K/ul (2.0-6.9); NEUTROPHILS % (AUTO) 90.2 % (42.2-75.2); PLATELET COUNT 146 10^3/uL (140-440); RDW COEFFICIENT OF VARIATION 13.2 % (11.6-14.8); RED BLOOD COUNT 4.19 10^6/ul (4.70-6.10); WHITE BLOOD COUNT 15.97 K/ul (4.2-10.2)
[2023-04-13 05:34] LABS: ALANINE AMINOTRANSFERASE 78.1 U/L (0-50); ALBUMIN 2.92 g/dL (3.5-5.0); ALKALINE PHOSPHATASE 95.1 U/L (38-126); ASPARTATE AMINO TRANSFERASE 73.3 U/L (17-59); BILIRUBIN,TOTAL 3.06 mg/dL (0.2-1.3); BLOOD UREA NITROGEN 12.9 mg/dL (9-20); CALCIUM 7.99 mg/dL (8.4-10.2); CARBON DIOXIDE 26.5 mmol/L (22-30.0); CHLORIDE 111.1 mmol/L (98-107); CREATININE 1.29 mg/dL (0.60-1.10); GLUCOSE 104.2 mg/dL (74-106); POTASSIUM 3.88 mmol/L (3.5-5.1); SODIUM 138.1 mmol/L (134.5-145); TOTAL PROTEIN 5.61 g/dL (6.3-8.2)
[2023-04-13] MEDS: TYLENOL PO PRN (08:04)
[2023-04-13] MEDS: ROCEPHIN 1 GM/50 ML D5W 1 GM/50 ML BAG IV SCH (08:04)
[2023-04-13] MEDS: LOVENOX SUBCUT SCH (08:05)
[2023-04-13 10:30] LABS: MONONUCLEOSIS SCREEN NEGATIVE (NEGATIVE)
--- NOTE | 2023-04-13 11:05 | PCM.PROG ---
Date/Time Seen Date Seen by Provider: 04/13/23 Time Seen by Provider: 08:30 Provider Provider: Shirley Campo PA-C, [facility] Chief Complaint Chief Complaint: WEAKNESS Subjective Subjective: Patient feeling better today. States a little light headed when standing. He slept most of the day yesterday. Still has a sore throat, hurts when swallowing. However, neck pain is improved. No n/v, abd pain, chest pain, or sob today. Urinating well. No burning with urination. Discussed he got a new tattoo on his left calf last week. Pt requesting to shower and get up more today, notified nursing staff. Objective Appearance: Positive Well-appearing, Well-nourished, No Apparent Distress, Alert and Oriented x3 and Other (SKIN: New tattoo noted to left calf. Healing well. No redness or warmth. ) Chest/Lungs: Positive Symmetrical With Equal Breath Sounds and Clear to Auscultation Bilaterally Heart: Positive RRR GI/: Positive Soft, Nontender and Bowel Sounds Normal Musculoskeletal: Positive Normal Gait and Station Neurological: Positive Cranial Nerves Intact, Alert, Oriented and Muscle Strength 5/5 in Upper and Lower Extremities Bilaterally; Negative Focal Deficit Vital Signs Vital Signs: Vital Signs: Last 24 Hours 04/12/23 13:00 04/12/23 12:01 04/12/23 14:00 Temperature 99.0 F 101.1 F H Temperature Source Oral Oral Pulse Rate 96 99 Pulse Rate [Apical] Respiratory Rate 16 16 Blood Pressure 93/42 L 114/65 Blood Pressure Mean 59 81 Blood Pressure Location Right Arm Left Arm Blood Pressure Position Supine Supine O2 Sat by Pulse Oximetry 98 96 Oxygen Delivery Method Room Air Room Air Telemetry Type Remote Telemetry Telemetry Monitoring Continues Telemetry Heart Rate 98 EKG RI Interval 0.24 H EKG QRS Interval 0.10 Telemetry Strip Reading SR WITH 1ST DEGREE AVB 04/12/23 18:00 04/12/23 19:00 04/12/23 19:57 Temperature 99.6 F Temperature Source Oral Pulse Rate 89 Pulse Rate [Apical] 92 Respiratory Rate 16 18 Blood Pressure 117/63 Blood Pressure Mean 81 Blood Pressure Location Right Arm Blood Pressure Position Supine O2 Sat by Pulse Oximetry 100 Oxygen Delivery Method Room Air Room Air Telemetry Type Remote Telemetry Telemetry Monitoring Continues Telemetry Heart Rate 92 EKG RI Interval 0.18 EKG QRS Interval 0.06 Telemetry Strip Reading SR 04/12/23 20:54 04/12/23 21:36 04/12/23 22:27 Temperature 102 F H 102 F H 101.5 F H Temperature Source Oral Oral Oral Pulse Rate 99 Pulse Rate [Apical] Respiratory Rate 18 Blood Pressure 115/58 L Blood Pressure Mean 77 Blood Pressure Location Right Arm Blood Pressure Position Supine O2 Sat by Pulse Oximetry 98 Oxygen Delivery Method Room Air Room Air Room Air Telemetry Type Telemetry Monitoring Telemetry Heart Rate EKG RI Interval EKG QRS Interval Telemetry Strip Reading 04/12/23 23:33 04/13/23 01:00 04/13/23 05:26 Temperature 99.2 F 100.7 F H Temperature Source Temporal Artery Scan Oral Pulse Rate 83 Pulse Rate [Apical] Respiratory Rate 20 Blood Pressure 114/48 L Blood Pressure Mean 70 Blood Pressure Location Right Arm Blood Pressure Position Supine O2 Sat by Pulse Oximetry 97 Oxygen Delivery Method Room Air Room Air Telemetry Type Remote Telemetry Telemetry Monitoring Continues Telemetry Heart Rate 78 EKG RI Interval 0.18 EKG QRS Interval 0.12 H Telemetry Strip Reading SR W/ BBB 04/13/23 06:56 04/13/23 08:00 04/13/23 10:00 Temperature 98.2 F Temperature Source Oral Pulse Rate 68 Pulse Rate [Apical] Respiratory Rate 16 17 Blood Pressure 116/55 L Blood Pressure Mean 75 Blood Pressure Location Left Arm Blood Pressure Position Supine O2 Sat by Pulse Oximetry 96 Oxygen Delivery Method Room Air Room Air Telemetry Type Remote Telemetry Telemetry Monitoring Continues Telemetry Heart Rate 77 EKG RI Interval 0.20 EKG QRS Interval 0.08 Telemetry Strip Reading SR Lab Results Lab Results: Lab Results: Last 24 Hours 04/13/23 04:50 WBC 15.97 H D RBC 4.19 L Hgb 12.3 L Hct 35.8 L MCV 85.4 MCH 29.4 MCHC 34.4 RDW Coeff of Celeste 13.2 Plt Count 146 Immature Gran % (Auto) 1.1 Neut % (Auto) 90.2 H Lymph % (Auto) 4.8 L Alfalfa % (Auto) 2.5 Eos % (Auto) 1.3 Baso % (Auto) 0.1 Neut # (Auto) 14.4 H Lymph # (Auto) 0.8 Alfalfa # (Auto) 0.4 Eos # (Auto) 0.2 Baso # (Auto) 0.0 Immature Gran # (Auto) 0.2 Sodium 138.1 Potassium 3.88 Chloride 111.1 H Carbon Dioxide 26.5 Anion Gap 4.38 BUN 12.9 Creatinine 1.29 H D Estimated GFR (MDRD) 84.00 BUN/Creatinine Ratio 10.00 Glucose 104.2 Calcium 7.99 L Total Bilirubin 3.06 H AST 73.3 H ALT 78.1 H Alkaline Phosphatase 95.1 Total Protein 5.61 L Albumin 2.92 L Globulin 2.69 Albumin/Globulin Ratio 1.08 Procalcitonin 90.72 H Infectious Alfalfa Assay Negative Additional Comments Additional Comments: I have independently reviewed and interpreted the labs/EKGs/imaging ordered during this hospital stay. I have reviewed outside records that are available in our EMR that pertain to medical stay including imaging/notes/labs from previous visits. Active Medications Active Medications: Medications Generic Name Dose Route Start Last Admin Trade Name Freq PRN Reason Stop Dose Admin Acetaminophen 650 mg 04/11/23 13:02 04/13/23 08:04 Acetaminophen 325 Mg Tablet PO 650 mg Q4H PRN Administration Mild Pain Enoxaparin Sodium 40 mg 04/12/23 10:45 04/13/23 08:05 Enoxaparin Sodium 40 Mg/0.4 Ml Syr SUBCUT 40 mg DAILY BAUDILIO Administration CEFTRIAXONE/D5W 1 GM PREMIX 1 gm in 50 mls @ 75 mls/hr 04/12/23 09:00 04/13/23 08:04 Rocephin 1 Gm/50 Ml D5w IV 04/15/23 08:59 75 mls/hr DAILY BAUDILIO Administration Lactated Ringer's 1,000 mls @ 250 mls/hr 04/12/23 08:07 04/13/23 10:11 Lactated Ringers IV 250 mls/hr .Q4H BAUDILIO Administration Ondansetron HCl 4 mg 04/11/23 13:02 Ondansetron Hcl/Pf 4 Mg/2 Ml Sdv IVP Q6H PRN Nausea / Vomiting Sodium Chloride 1 syr 04/11/23 09:33 0.9% Sodium Chloride 10 Ml Disp.Syrin IVF PRN PRN To flush IV Plan Plan: A&P: 1. Acute pyelonephritis - Urine culture pending but showing no growth. LR increased to 250 ml/hr yesterday, will turn back down to 150 ml/hr. Continue Rocephin, procal/wbc improving. Zofran IV for nausea and tylenol PO for pain/fever ordered. Gonorrhea/chlamydia pending. HIV and hep c labs sent. 2. Septic shock in setting of acute pyelonephritis - Improving. Pt continued to be hypotensive despite fluid resuscitation. Improved now. Repeat lactic initially >5, normalized on 04/12. WBC improving. Continue fluids and abx. Urine cx and blood cx pending but negative so far. Pt received 30 ml/kg of fluids. Procal and crp elevated. Will trend procal, improved today. 3. SAVANNA, stage I in setting of dehydration, hypotension, and sepsis - Improved. Continue fluids. Repeat BMP in AM. 4. Dehydration - Plan as above 5. Hypotension in setting of dehydration and sepsis - Improved after fluids. Continue to monitor, vitals q4hrs. 6. Elevated liver enzymes in setting of septic shock - Improved today. Will monitor closely. If not improving will order US RUQ on Friday. 7. Pharyngitis - Repeated strep to ensure good swab, still negative. Alfalfa screen negative as well. 8. Recent tattoo left calf - Healing well, no cellulitis. DVT: Lovenox Review Statement Review Statement: I have personally discussed and reviewed the patient's visit/currently labs/imaging/decision making with Dr. Baltazar, my supervising attending. Greater that 50 minutes spent with patient, 50% of the time spent with this patient was devoted to counseling and coordination of care.
[2023-04-14] MEDS: LACTATED RINGERS 1,000 ML IV SCH ×2 (04:08→10:59)
[2023-04-14 05:13] LABS: BASOPHILS % (AUTO) 0.2 % (0.0-3.0); EOSINOPHILS # (AUTO) 0.6 K/ul (0.0-0.7); EOSINOPHILS % (AUTO) 4.4 % (0.0-7.0); HEMATOCRIT 35.6 % (42.0-52.0); HEMOGLOBIN 12.1 g/dl (14.0-18.0); IMMATURE GRANULOCYTE # (AUTO) 0.2 (0.0-1.0); IMMATURE GRANULOCYTE % (AUTO) 1.6 % (0.0-5.0); LYMPHOCYTES # (AUTO) 2.2 K/uL (0.60-3.4); MEAN CORPUSCULAR HEMOGLOBIN 29.3 pg (27.0-31.0); MEAN CORPUSCULAR VOLUME 86.2 fl (80.0-94.0); MONOCYTES # (AUTO) 0.8 K/uL (0.4-2.0); MONOCYTES % (AUTO) 6.3 (0-10); NEUTROPHILS # (AUTO) 8.9 K/ul (2.0-6.9); NEUTROPHILS % (AUTO) 70.5 % (42.2-75.2); PLATELET COUNT 162 10^3/uL (140-440); RDW COEFFICIENT OF VARIATION 13.2 % (11.6-14.8); RED BLOOD COUNT 4.13 10^6/ul (4.70-6.10); WHITE BLOOD COUNT 12.63 K/ul (4.2-10.2)
[2023-04-14 05:29] LABS: ALBUMIN 3.05 g/dL (3.5-5.0); ASPARTATE AMINO TRANSFERASE 48.6 U/L (17-59); BILIRUBIN,TOTAL 1.45 mg/dL (0.2-1.3); BLOOD UREA NITROGEN 10.9 mg/dL (9-20); CALCIUM 8.11 mg/dL (8.4-10.2); CARBON DIOXIDE 27.8 mmol/L (22-30.0); CHLORIDE 109.3 mmol/L (98-107); CREATININE 1.13 mg/dL (0.60-1.10); GLUCOSE 109.2 mg/dL (74-106); POTASSIUM 3.73 mmol/L (3.5-5.1); SODIUM 139.9 mmol/L (134.5-145); TOTAL PROTEIN 5.83 g/dL (6.3-8.2)
[2023-04-14] MEDS: ROCEPHIN 1 GM/50 ML D5W 1 GM/50 ML BAG IV SCH (08:21)
[2023-04-14] MEDS: LOVENOX SUBCUT SCH (08:23)
--- NOTE | 2023-04-14 10:25 | DCSUM ---
Admission Date Admission Date: 04/11/23 Discharge Date Discharge Date: 04/14/23 Admission Diagnosis Admission Diagnosis: Sepsis, SAVANNA, UTI Discharge Diagnosis Discharge Diagnosis: Sepsis, SAVANNA, UTI Hospital Provider Hospital Provider: CURTIS AREVALO, [facility] [place] Physician Primary Care Physician: TERI WANG APRN Summary of History and Physical Summary of History and Physical: Patient is a 22 year old male with his mother with pmhx of dilatation of aortic valve who presents to ER for n/v, abd pain, and dizziness. Patient states he started feeling bad yesterday with a headache. Last night he experienced burning while urinating. Then today the abd pain and vomiting started. He denies any recent illnesses. Denies any risky sexual behavior, always uses protection. No rashes or testicular pain. No fever. In the ER he was found to be hypotensive, low grade fever, tachycardic, WBC 30.9, LA >4, Cr 2.36. He states he hasn't drank as much in last few days as well. Flu, rsv, and covid negative. CT chest, abd, pelvis negative for acute findings. UA significant for 3+ leukocytes and positive nitrites. He was given rocephin and fluids. 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. He had a borderline dilated aortic valve annulus. He is due to be seen by them again soon. Hospital Course Subjective: No fever or events overnight. Feeling much better today and would like to go home if able. Treatment over course of stay: 1. Acute pyelonephritis - Urine culture showing no growth. Has been receiving LR continuous. Rocephin, procal/wbc improved. Zofran IV for nausea and tylenol PO for pain/fever ordered. Gonorrhea/chlamydia pending. HIV and hep c labs sent. 2. Septic shock in setting of acute pyelonephritis - Improving. Pt continued to be hypotensive despite fluid resuscitation. Improved now. Repeat lactic initially >5, normalized on 04/12. WBC improving. Continue fluids and abx. Urine cx and blood cx pending but negative so far. Pt received 30 ml/kg of fluids. Procal and crp elevated. Will trend procal, improved today. 3. SAVANNA, stage I in setting of dehydration, hypotension, and sepsis - Improved. Continue fluids. Repeat BMP in AM. 4. Dehydration - Plan as above 5. Hypotension in setting of dehydration and sepsis - Improved after fluids. Continue to monitor, vitals q4hrs. 6. Elevated liver enzymes in setting of septic shock - Improved today. Will monitor closely. If not improving will order US RUQ on Friday. 7. Pharyngitis - Repeated strep to ensure good swab, still negative. Mclean screen negative as well. 8. Recent tattoo left calf - Healing well, no cellulitis. Addendum 04/15/23 HIV and Hepatitis panels negative. + for chlamydia. New diagnosis of acute pyelonephritis due to chlamydia Treated with levaquin x 7 days. Appearance: Pleasant, No Apparent Distress, Alert, Well-appearing and Well- nourished HEENT: MMM, Supple and No JVD CVS: No Murmur, No Rubs, No Gallop and No JVD Abdomen: Soft, Non-Tender and No Distention Respiratory: No Dyspnea Extremities: No Edema and No Calf Tenderness Vital Signs: Most Recent Vital Signs Temperature 96.9 F L 04/14/23 05:00 Temperature Source Temporal Artery Scan 04/14/23 05:00 Temperature Source Infrared 04/11/23 09:15 Pulse Rate 54 L 04/14/23 08:00 Respiratory Rate 18 04/14/23 08:00 Blood Pressure 131/75 04/14/23 05:00 Blood Pressure Mean 93 04/14/23 05:00 Blood Pressure Right Arm 115/66 04/11/23 14:52 Blood Pressure Location Right Arm 04/14/23 05:00 Blood Pressure Position Supine 04/14/23 05:00 O2 Sat by Pulse Oximetry 99 04/14/23 05:00 Oxygen Delivery Method Room Air 04/14/23 08:00 Height 6 ft 7 in 04/11/23 14:52 Weight 196 lb 9.6 oz 04/11/23 14:52 Telemetry Type Remote Telemetry 04/14/23 07:00 Telemetry Monitoring Continues 04/14/23 07:00 Telemetry Heart Rate 59 L 04/14/23 07:00 EKG VA Interval 0.18 04/14/23 07:00 EKG QRS Interval 0.08 04/14/23 07:00 EKG QT Interval 0.50 H 04/14/23 01:00 Telemetry Strip Reading SB 04/14/23 07:00 Lab Results Last 24 Hours: 04/14/23 04/13/23 04:54 04:50 WBC 12.63 H RBC 4.13 L Hgb 12.1 L Hct 35.6 L MCV 86.2 MCH 29.3 MCHC 34.0 RDW Coeff of Celeste 13.2 Plt Count 162 Immature Gran % (Auto) 1.6 Neut % (Auto) 70.5 Lymph % (Auto) 17.0 Mclean % (Auto) 6.3 Eos % (Auto) 4.4 Baso % (Auto) 0.2 Neut # (Auto) 8.9 H Lymph # (Auto) 2.2 Mclean # (Auto) 0.8 Eos # (Auto) 0.6 Baso # (Auto) 0.0 Immature Gran # (Auto) 0.2 Sodium 139.9 Potassium 3.73 Chloride 109.3 H Carbon Dioxide 27.8 Anion Gap 6.53 BUN 10.9 Creatinine 1.13 H Estimated GFR (MDRD) 97.00 BUN/Creatinine Ratio 9.64 Glucose 109.2 H Calcium 8.11 L Total Bilirubin 1.45 H D AST 48.6 ALT 70.0 H Alkaline Phosphatase 138.0 H D Total Protein 5.83 L Albumin 3.05 L Globulin 2.78 Albumin/Globulin Ratio 1.09 Procalcitonin 45.48 H Infectious Mclean Assay Negative Discharge Instructions Discharge Planning: Discharge Planning > 40 minutes Activity as tolerated. Rest, drink plenty of fluids Levaquin 500 mg daily x 7 days Follow up with PCP this week Medications Given This Visit: Medications Generic Name Dose Route Start Last Admin Trade Name Carlton PRN Reason Stop Dose Admin Acetaminophen 650 mg 04/11/23 13:02 04/13/23 08:04 Acetaminophen 325 Mg Tablet PO 650 mg Q4H PRN Administration Mild Pain Enoxaparin Sodium 40 mg 04/12/23 10:45 04/14/23 08:23 Enoxaparin Sodium 40 Mg/0.4 Ml Syr SUBCUT 40 mg DAILY BAUDILIO Administration CEFTRIAXONE/D5W 1 GM PREMIX 1 gm in 50 mls @ 75 mls/hr 04/12/23 09:00 04/14/23 08:21 Rocephin 1 Gm/50 Ml D5w IV 04/15/23 08:59 75 mls/hr DAILY BAUDILIO Administration Lactated Ringer's 1,000 mls @ 150 mls/hr 04/13/23 21:22 04/14/23 04:08 Lactated Ringers IV 150 mls/hr .Q6H40M BAUDILIO Administration Ondansetron HCl 4 mg 04/11/23 13:02 Ondansetron Hcl/Pf 4 Mg/2 Ml Sdv IVP Q6H PRN Nausea / Vomiting Sodium Chloride 1 syr 04/11/23 09:33 0.9% Sodium Chloride 10 Ml Disp.Syrin IVF PRN PRN To flush IV Medications Given This Visit: Medications at Discharge (Home Meds & RX) albuterol sulfate 90 mcg/actuation aerosol inhaler (ProAir HFA) 90 mcg inhalation 3-4XD PRN shortness of breath or wheezing #8.5 grams 10/24/22 Discharge Plan Discharge Discharge Orders: Discharge Patient (ONCE); Ordered 04/14/23 Ordered By: ROBI DAN Activity Restrictions/Additional Instructions: You are being discharged home today. Activity as tolerated. Rest and drink plenty of fluids to maintain adequate hydration. New Medications: Levaquin 500 mg daily by mouth for 7 days (sent to [facility]) YOU HAVE A FOLLOW UP APPOINTMENT WITH DR. FORD'S OFFICE WITH MATTEO FRANKLIN ON March AT 7:45AM. SHOULD YOU HAVE ANY QUESTIONS OR NEED TO RESCHEDULE YOU CAN CONTACT THEIR OFFICE AT [phone]. If you experience a new onset of symptoms, or a worsening of current symptoms, please seek adequate medical attention. Instructions: Acute Kidney Injury (GEN), Urinary Tract Infection in Men (GEN), Sepsis (GEN) Patient Disposition: HOME SELF-CARE Prescriptions: New levofloxacin 500 mg tablet 500 mg PO DAILY Qty: 7 0RF Continued albuterol sulfate [ProAir HFA] 90 mcg/actuation HFA aerosol inhaler 90 mcg inhalation 3-4XD PRN (Reason: shortness of breath or wheezing) Qty: 8.5 0RF Did you review [place] TYPE [place] for ALL controlled substances?: No Discussed opioids are addictive and Narcan is available by prescription or from pharmacy.: No Condition: Good
[2023-04-14 10:35] VITALS: RESP 16; TEMP 97.9
[2023-04-14] MEDS ORDERED: CEPACOL SORE THROAT LOZENGE MUCOUSMEMB PRN (10:49)
[2023-04-14 13:52] VITALS: BP 119/64
[2023-04-14 20:11] LABS: CHLAMYDIA TRACHOMATIS, NAA Positive (Negative); NEISSERIA GONORRHOEAE, NAA Negative (Negative)
[2023-04-15 04:09] LABS: HCV ANTIBODY Non Reactive (Non Reactive); HIV 4TH GENERATION W/REFLEX Non Reactive (Non Reactive)
== END 2023-04-14 16:50 | disposition home or self-care (01) | DRG 865 ==
LOC: ED 09:14 → MEDSURG B 12:38
PROVIDERS: ADMIT Hospitalist; ATTEND Nurse Practitioner Family
DX: N10 Acute pyelonephritis; J02.9 Acute pharyngitis, unspecified; Z20.822 Contact with and (suspected) exposure to COVID-19; A74.9 Chlamydial infection, unspecified; N17.9 Acute kidney failure, unspecified; R10.9 Unspecified abdominal pain; Q25.44 Congenital dilation of aorta; N39.0 Urinary tract infection, site not specified; R65.21 Severe sepsis with septic shock